=== PATIENT | female | born 1975 | race Caucasian/White ===

== ENCOUNTER 2023-11-01 14:16 | Emergency (ER) | payer OTHER, SELFPAY ==
--- NOTE | 2023-11-01 14:19 | ED.EAR ---
HPI - Ear Problem General Chief complaint: Ear Stated complaint: left ear pain, not able to hear Time Seen by Provider: 11/01/23 14:19 Source: patient Mode of arrival: ambulatory Limitations: no limitations History of Present Illness HPI Narrative: Jose Daniel is a 48-year-old female patient presenting to the clinic today with complaints of left ear discomfort-difficulty hearing for the past few days. She also reports having burning and pain in the mouth when she is eating. States she just got out of a [facility] and is feeling a lot better however today suffer states she has been able to take her Adderall. Her heart rate is 135 in the clinic today but she is denying any chest pain or shortness of breath. Related Data Home Medications Medication Instructions Recorded Confirmed buprenorphine 2 mg-naloxone 0.5 mg 0.5 tablet sublingual TID 11/01/23 11/01/23 sublingual tablet clonidine HCl 0.1 mg tablet 0.1 mg PO DIRECTED 11/01/23 11/01/23 metoprolol succinate 25 mg 25 mg PO DAILY 11/01/23 11/01/23 tablet,extended release 24 hr Allergies Allergy/AdvReac Type Severity Reaction Status Date / Time No Known Allergies Allergy Verified 11/01/23 14:41 Review of Systems Review of Systems: Pertinent positives per HPI. Patient denies any fever, chills, rash, headache, visual changes, dizziness, cough, runny nose, sore throat, shortness of breath, chest pain, palpitations, nausea, vomiting, diarrhea, constipation, abdominal pain, or any urinary issues. PMFSH Comments At the time of my signature, I reviewed and agree with the nursing past medical, surgical, social, and family history. There is no relevant family history pertinent to the patient complaint. Exam Narrative: General: Well-developed, well nourished, in no apparent distress Head: Normocephalic, atraumatic Eyes: Pupils equally round and reactive to light bilaterally, EOM intact, sclera and conjunctive clear, no discharge, lids normal Ears: Right TMs intact and clear, bright ear canals clear, left ear canal with cerumen impaction, unable to see left TM, ear irrigation was performed, no drainage, decreased hearing in the left ear Nose: Nares patent, no discharge, no inflammation, no sinus tenderness. Mouth: Oropharynx without lesions or masses, your plaque-like lesions to the tongue with red bumps and rash, good dentition, MMM. Neck: Supple, trachea midline, no enlargement of anterior or posterior cervical nodes, no thyroid masses or goiter palpable. Cardio: Regular rate and rhythm, s1 and s2 normal, no murmur appreciated. Resp: Clear to auscultation bilaterally anteriorly and posteriorly, no rhonchi, rales, wheezing or rubs Course Course Emergency Course: Portions of this record may have been created with voice recognition software. Level of Care: Express Care Visit Vital Signs Vital signs: Vital Signs Temperature 37.0 C 11/01/23 14:37 Pulse Rate 135 H 11/01/23 14:37 Respiratory Rate 16 11/01/23 14:37 Blood Pressure 127/95 H 11/01/23 14:37 Pulse Oximetry 100 11/01/23 14:37 Oxygen Delivery Room Air 11/01/23 14:37 Temperature 37.0 C 11/01/23 14:37 Pulse Rate 135 H 11/01/23 14:37 Respiratory Rate 16 11/01/23 14:37 Blood Pressure 127/95 H 11/01/23 14:37 Pulse Oximetry 100 11/01/23 14:37 Oxygen Delivery Room Air 11/01/23 14:37 Vital signs reviewed Procedures Ear Wax Removal Left Ear: Ear Wax Removal Date: 11/01/23 Ear Wax Removal Time: 14:53 Cerumenolytic Used: 5-10% Sodium Bicarb solution Results: Re-examined: some cerumen remains TM Examination: other (unable to visualize TM) Ear Canal Exam: atraumatic Patient Tolerated Procedure: other (not well. ) Complications: pain Technique: ear canal irrigated Additional Comments: Verbal consent obtained for ear lavage. Risk and benefits explained to patient and they voiced unde
[2023-11-01 14:37] VITALS: BP 127/95; PULSE 135; RESP 16; TEMP 37; O2SAT 100
[2023-11-01] MEDS: CARBAMIDE PEROXIDE 6.5% OT SOLN 15 ML BTL 5 DROP LEFT EAR (14:46)
== END 2023-11-01 15:46 | disposition home or self-care (01) ==
PROVIDERS: Emergency Provider Nurse Practitioner Family
DX: B37.0 Candidal stomatitis (principal); H61.22 Impacted cerumen, left ear; I10 Essential (primary) hypertension
CPT/HCPCS: 69209; 99213; A9270; G0463